=== PATIENT | female | born 1990 ===

== ENCOUNTER 2020-03-04 21:03 | Emergency (ER) | payer BC ==
--- OUTSIDE RECORDS SUMMARY | 2020-03-04 21:06 | XMS REPORT | Continuity of Care Document ---
:1990 Author Organization [facility] t Address [address] [place] [address] Care Team Providers Name Role Phone Unavailable Unavailable Unavailable Payers Payer Name Policy Type Policy Number Effective Date Expiration Date S ource Problems This patient has no known problems. Allergies, Adverse Reactions, Alerts Allergy Allergy Status Severity Reaction(s) Onset Inactive Treating Comm ents Source Name Type Date Date Clinician No Known DA Active U 2019-0 [facility] No Known DA Active U 2009-0 [facility] 00 [facility] Medications This patient has no known medications. Procedures This patient has no known procedures. Results Test Description Test Time Test Comments Results Result Comments Source CBC W/AUTO DIFF 2018-04-24 08:46:00 Test Item Value Reference Range Interpretation Comme nts WHITE BLOOD CELL (test code = WBC) 11.0 K/mm3 6.6-12.1 N RED BLOOD CELL (test code = RBC) 3.22 M/mm3 3.45-5.01 L HEMOGLOBIN (test code = HGB) 8.8 g/dL 10.7-13.9 L HEMATOCRIT (test code = HCT) 28.3 % 32.1-42.1 L MEAN CELL VOLUME (test code = MCV) 88 fL 84.1-94.8 N MEAN CELL HGB (test code = MCH) 27.3 pg 27-35 N MEAN CELL HGB CONCETRATION (test code = MCHC) 31.1 gm/dL 32.2-34. 1 L RED CELL DISTRIBUTION WIDTH (test code = RDW) 14.3 % 12.4-16. 5 N PLATELET COUNT (test code = PLT) 114 K/mm3 133-385 L IMMATURE PLATELET FRACTION (test code = IPF) 0.0 % 0.0-10.8 N MEAN PLATELET VOLUME (test code = MPV) 12.0 fl 9.1-12.7 N NEUTROPHIL % (test code = NT%) 74.7 % 56.5-79.4 N LYMPHOCYTE % (test code = LY%) 18.6 % 14.3-34.3 N MONOCYTE % (test code = MO%) 4.8 % 5.1-10.4 L EOSINOPHIL % (test code = EO%) 0.9 % 0.1-3.0 N BASOPHIL % (test code = BA%) 0.3 % 0.1-1.0 N NEUTROPHIL # (test code = NT#) 8.3 K/mm3 LYMPHOCYTE # (test code = LY#) 2.1 K/mm3 MONOCYTE # (test code = MO#) 0.5 K/mm3 EOSINOPHIL # (test code = EO#) 0.10 K/mm3 BASOPHIL # (test code = BA#) 0.0 K/mm3 RBC MORPHOLOGY REQUIRED (test code = RBCM) NORMAL NORMAL PLATELET MORPHOLOGY REQUIRED (test code = PLTMR) NORMAL MALIK L AG HEPATITIS B [id number] 04:56:00 Test Item Value Reference Range Interpretation Comments AG HEPATITIS B SURFACE (test code NONREACTIVE NONREACTIVE = HBSAG) IS CONSENT FORM SIGNED FOR HIV TESTING? YAB HEPATITIS C [id number] 04:56:00 Test Item Value Reference Range Interpretation Comments AB HEPATITIS C (test code = NONREACTIVE NONREACTIVE HCVAB) SIGNAL TO CUTOFF (test code = 0.04 <0.80 N CUTOFF) IS CONSENT FORM SIGNED FOR HIV TESTING? YAB [id number] 04:56:00 Test Item Value Reference Range Interpretation Comments AB TREPONEMA (test code = TREPAB) NONREACTIVE NONREACTIVE IS CONSENT FORM SIGNED FOR HIV TESTING? YAB HIV 1 [id number] 04:56:00 Test Item Value Reference Range Interpretation Comments AB HIV 1 2 (test NONREACTIVE NONREACTIVE Done by Bacilio Reza code = [id number]) 4th Gen HIV Ag/Ab Combo Screen IS CONSENT FORM SIGNED FOR HIV TESTING? YAG HEPATITIS B [id number] 04:17:00 Test Item Value Reference Range Interpretation Comments AG HEPATITIS B SURFACE (test code NONREACTIVE NONREACTIVE = HBSAG) IS CONSENT FORM SIGNED FOR HIV TESTING? YAB HEPATITIS C [id number] 04:17:00 Test Item Value Reference Range Interpretation Comments AB HEPATITIS C (test code = HCVAB) NONREACTIVE SIGNAL TO CUTOFF (test code = CUTOFF) <0.80 IS CONSENT FORM SIGNED FOR HIV TESTING? YAB [id number] 04:17:00 Test Item Value Reference Range Interpretation Comments AB TREPONEMA (test code = TREPAB) NONREACTIVE NONREACTIVE IS CONSENT FORM SIGNED FOR HIV TESTING? YAB HIV 1 04:17:00 Test Item Value Reference Range Interpretation Comments AB HIV 1 2 (test code = [id number]) NONREACTIVE IS CONSENT FORM SIGNED FOR HIV TESTING? YCBC W/AUTO [id number] 03:55:00 Test Item Value Reference Range Interpretation Comments WHITE BLOOD CELL (test code = WBC) 11.4 K/mm3 6.6-12.1 N RED BLOOD CELL (test code = RBC) 3.89 M/mm3 3.45-5.01 N HEMOGLOBIN (test code = HGB) 10.7 g/dL 10.7-13.9 N HEMATOCRIT (test code = HCT) 34.0 % 32.1-42.1 N MEAN CELL VOLUME (test code = MCV) 87 fL 84.1-94.8 N MEAN CELL HGB (test code = MCH) 27.5 pg 27-35 N MEAN CELL HGB CONCETRATION (test 31.5 gm/dL 32.2-34.1 L code = MCHC) RED CELL DISTRIBUTION WIDTH (test 14.2 % 12.4-16.5 N code = RDW) PLATELET COUNT (test code = PLT) 149 K/mm3 133-385 N IMMATURE PLATELET FRACTION (test 0.0 % 0.0-10.8 N code = IPF) MEAN PLATELET VOLUME (test code = 12.4 fl 9.1-12.7 N MPV) NEUTROPHIL % (test code = NT%) 76.0 % 56.5-79.4 N LYMPHOCYTE % (test code = LY%) 18.0 % 14.3-34.3 N MONOCYTE % (test code = MO%) 4.6 % 5.1-10.4 L EOSINOPHIL % (test code = EO%) 0.4 % 0.1-3.0 N BASOPHIL % (test code = BA%) 0.3 % 0.1-1.0 N NEUTROPHIL # (test code = NT#) 8.7 K/mm3 LYMPHOCYTE # (test code = LY#) 2.1 K/mm3 MONOCYTE # (test code = MO#) 0.5 K/mm3 EOSINOPHIL # (test code = EO#) 0.04 K/mm3 BASOPHIL # (test code = BA#) 0.0 K/mm3 RBC MORPHOLOGY REQUIRED (test code NORMAL NORMAL = RBCM) PLATELET MORPHOLOGY REQUIRED (test NORMAL NORMAL code = PLTMR)
[2020-03-04 21:54] LABS: Urine Bacteria 20-50 /HPF (<20)
[2020-03-04 21:55] LABS: Urine Blood 2+ (NEG); Urine Glucose NEGATIVE (NEG); Urine Protein NEGATIVE (NEG)
--- NOTE | 2020-03-04 22:07 | ER ---
Nurse's Notes [facility] Name: Leonarda Vegas Age: 30 yrs Sex: Female : 1990 Arrival Date: 03/04/2020 Time: 21:06 Bed 13 Private MD: Diagnosis: Urinary tract infection, site not specified Presentation: 03/04 21:25 Chief complaint: Patient states: Pain with urination that began 2 days ago, reports lp1 taking AZO without relief, attempted taking left over Amoxicillin; States pelvic pain and low back pain with urinary frequency. Coronavirus screen: Client denies travel out of the [place] in the last 14 days. At this time, the client does not indicate any symptoms associated with coronavirus-19. Ebola Screen: No symptoms or risks identified at this time. Risk Assessment: Do you want to hurt yourself or someone else? Patient reports no desire to harm self or others. Onset of symptoms was March 04, 2020. 21:25 Method Of Arrival: Ambulatory lp1 21:25 Acuity: MARTA 4 lp1 21:25 Initial Sepsis Screen: Does the patient meet any 2 criteria? No. Patient's initial vg1 sepsis screen is negative. Does the patient have a suspected source of infection? No. Patient's initial sepsis screen is negative. 21:26 Note Patient reports currently . 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 - Social history:: Smoking status: Patient denies any tobacco usage or history of. Screenin:27 Abuse screen: Denies threats or abuse. Denies injuries from another. Nutritional lp1 screening: No deficits noted. Tuberculosis screening: No symptoms or risk factors identified. Fall Risk None identified. Assessment: 21:55 General: Appears in no apparent distress. comfortable, Behavior is calm, cooperative. vg1 Pain: Complains of pain in lower ABD and lower back. Pain currently is 6 out of 10 on a pain scale. Quality of pain is described as crampy, Pain began 03/02/20. Neuro: Level of Consciousness is awake, alert, obeys commands, Oriented to person, place, time. Cardiovascular: Patient's skin is warm and dry. Respiratory: Airway is patent Respiratory effort is even, unlabored. GI: No signs and/or symptoms were reported involving the gastrointestinal system. : Reports burning with urination, urinary frequency, foul odor. EENT: No signs and/or symptoms were reported regarding the EENT system. Derm: Skin is intact, is healthy with good turgor. Musculoskeletal: Circulation, motion, and sensation intact. Vital Signs: 21:27 Pain 6/10; lp1 22:00 BP 117 / 75; Pulse 100; Resp 14; Pulse Ox 100% on R/A; vg1 ED Course: 21:06 Patient arrived in ED. ag3 21:12 Tos[facility] Guzman [facility]C [facility] kb 21:12 Kyrie Bueno MD is Attending Physician. kb 21:26 Triage completed. lp1 21:26 Arm band placed on. lp1 21:38 Salma Rodriguez, EVY is Primary Nurse. vg1 21:59 Patient has correct armband on for positive identification. Bed in low position. Call vg1 light in reach. 22:15 No provider procedures requiring assistance completed. Patient did not have IV access vg1 during this emergency room visit. Administered Medications: 22:15 Drug: Augmentin 875 mg Route: PO; vg1 22:15 Follow up: Response: Medication administered at discharge. vg1 Outcome: 22:06 Discharge ordered by MD. kb 22:15 Discharged to home ambulatory. vg1 22:15 Condition: stable 22:15 Discharge instructions given to patient, Instructed on discharge instructions, follow up and referral plans. medication usage, Demonstrated understanding of instructions, follow-up care, medications, Prescriptions given X 1. 22:16 Patient left the ED. vg1 Signatures: Tosha Guzman FNP-C FNP-Ckb Pena, Laura, RN RN 1 Renee Mendez 3 Salma Rodriguez, RN RN vg1 Corrections: (The following items were deleted from the chart) 22:07 21:55 Missed attempt(s): 22 gauge in right antecubital area. vg1 vg1
--- NOTE | 2020-03-04 22:07 | EDPHYS ---
Physician Documentation [facility] Name: Leonarda Vegas Age: 30 yrs Sex: Female : 1990 Arrival Date: 03/04/2020 Time: 21:06 Bed 13 Private MD: ED Physician Kyrie Bueno HPI: 03/04 21:46 This 30 yrs old Female presents to ER via Ambulatory with complaints of Pain With kb Urination. 21:46 The patient presents with urinary symptoms, dysuria, frequency. Onset: The kb symptoms/episode began/occurred 3 day(s) ago. Modifying factors: The symptoms are alleviated by nothing, the symptoms are aggravated by nothing. Associated signs and symptoms: Pertinent positives: dysuria, urinary frequency. Severity of symptoms: At their worst the symptoms were moderate, in the emergency department the symptoms are unchanged. The patient has not experienced similar symptoms in the past. The patient has not recently seen a physician. 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 - Social history:: Smoking status: Patient denies any tobacco usage or history of. ROS: 21:46 Constitutional: Negative for fever, chills, and weight loss, Cardiovascular: Negative kb for chest pain, palpitations, and edema, Respiratory: Negative for shortness of breath, cough, wheezing, and pleuritic chest pain, Abdomen/GI: Negative for abdominal pain, nausea, vomiting, diarrhea, and constipation, MS/Extremity: Negative for injury and deformity, Skin: Negative for injury, rash, and discoloration, Neuro: Negative for headache, weakness, numbness, tingling, and seizure. 21:46 : Positive for urinary frequency, burning with urination. Exam: 21:46 Constitutional: This is a well developed, well nourished patient who is awake, alert, kb and in no acute distress. Head/Face: Normocephalic, atraumatic. Chest/axilla: Normal chest wall appearance and motion. Nontender with no deformity. No lesions are appreciated. Cardiovascular: Regular rate and rhythm with a normal S1 and S2. No gallops, murmurs, or rubs. Normal PMI, no JVD. No pulse deficits. Respiratory: Lungs have equal breath sounds bilaterally, clear to auscultation and percussion. No rales, rhonchi or wheezes noted. No increased work of breathing, no retractions or nasal flaring. Abdomen/GI: Soft, non-tender, with normal bowel sounds. No distension or tympany. No guarding or rebound. No evidence of tenderness throughout. Skin: Warm, dry with normal turgor. Normal color with no rashes, no lesions, and no evidence of cellulitis. MS/ Extremity: Pulses equal, no cyanosis. Neurovascular intact. Full, normal range of motion. Neuro: Awake and alert, GCS 15, oriented to person, place, time, and situation. Cranial nerves II-XII grossly intact. Motor strength 5/5 in all extremities. Sensory grossly intact. Cerebellar exam normal. Normal gait. Vital Signs: 21:27 Pain 6/10; lp1 22:00 BP 117 / 75; Pulse 100; Resp 14; Pulse Ox 100% on R/A; vg1 MDM: 21:12 Patient medically screened. kb 21:47 Data reviewed: vital signs, nurses notes. Data interpreted: Pulse oximetry: on room air kb is 100 %. Interpretation: normal. Counseling: I had a detailed discussion with the patient and/or guardian regarding: the historical points, exam findings, and any diagnostic results supporting the discharge/admit diagnosis, lab results, the need for outpatient follow up, a family practitioner, to return to the emergency department if symptoms worsen or persist or if there are any questions or concerns that arise at home. 03/04 21:12 Order name: Urine Microscopic Only; Complete Time: 22:05 kb 03/04 21:36 Order name: Urine Dipstick--Ancillary (enter results); Complete Time: 22:05 mw2 03/04 21:12 Order name: Urine Test (obtain specimen); Complete Time: 21:35 kb 03/04 21:36 Order name: Urine --Ancillary (enter results); Complete Time: 22:05 mw2 03/04 21:55 Order name: Urine Culture EDNY 03/04 21:12 Order name: Urine Dipstick-Ancillary (obtain specimen); Complete Time: 21:35 kb Administered Medications: 22:15 Drug: Augmentin 875 mg Route: PO; vg1 22:15 Follow up: Response: Medication administered at discharge. vg1 Disposition: 03/05 04:03 Co-signature as Attending Physician, Kyrie Bueno MD. [email or web address] Disposition: 03/04/20 22:06 Discharged to Home. Impression: Urinary tract infection, site not specified. - Condition is Stable. - Discharge Instructions: Urinary Tract Infection, Adult, [id number]. - Prescriptions for Augmentin 875- 125 mg Oral Tablet - take 1 tablet by ORAL route every 12 hours for 10 days; 20 tablet. - Medication Reconciliation Form, Thank You Letter, Antibiotic Education, Prescription Opioid Use form. - Follow up: Emergency Department; When: As needed; Reason: Worsening of condition. Follow up: Private Physician; When: 2 - 3 days; Reason: Recheck today's complaints, Continuance of care, Re-evaluation by your physician. Signatures: Dispatcher [employer] EDTosha Cordova, RENEE-C ASSISTANT ACCOUNT MANAGER-CkNatalie Bateman, RN RN 1 Salma Rodriguez RN RN vg1 Kyrie Bueno MD MD [email or web address] Corrections: (The following items were deleted from the chart) 03/04 22:16 22:06 03/04/2020 22:06 Discharged to Home. Impression: Urinary tract infection, site vg1 not specified. Condition is Stable. Forms are Medication Reconciliation Form, Thank You Letter, Antibiotic Education, Prescription Opioid Use. Follow up: Emergency Department; When: As needed; Reason: Worsening of condition. Follow up: Private Physician; When: 2 - 3 days; Reason: Recheck today's complaints, Continuance of care, Re-evaluation by your physician. kb
[2020-03-04 22:23] VITALS: BP 117/75; O2SAT 100
[2020-03-04] MEDS ORDERED: AMOX/K CLAV 875 MG TAB ONE (22:25)
== END 2020-03-04 22:16 | disposition home or self-care (01) ==
LOC: ER 21:03
DX: N39.0 Urinary tract infection, site not specified (principal)
CPT/HCPCS: 81003; 81015; 81025; 87086; 87088; 99283